=== PATIENT | female | born 1935 | race Caucasian/White ===

== ENCOUNTER 2019-07-27 05:55 | Day surgery (SDC) | payer MEDICARE, OTHER ==
[2019-07-27] VITALS (11 sets, daily range): BP systolic 134–163; BP diastolic 74–84
[~2019-07-27] VITALS: Ht 153 cm; Wt 65.8 kg
[~2019-07-27 05:55] MED LIST: ACTOPLUS MET 11 EACH ORAL; ACTOS15 MG ORAL; ACYCLOVIR200 MG/51 ORAL; AGGRENOX1 CAP ORAL; ARTIFICIAL TEA3.5 GM OP; BACLOFEN10 MG ORAL; CARVEDILOL25 MG ORAL; CELEBREX200 MG ORAL; CLONAZEPAM0.5 MG PO; CREON DR 24,001 EACH PO; CRESTOR20 MG ORAL; DIPHENHIST25 MG ORAL; EXFORGE 10-1601 EACH ORAL; FENOFIBRIC ACI105 MG PO; GENTEAL GEL DRO25 ML OP; IBANDRONATE SO150 MG PO; IBUPROFEN200 MG ORAL; JANUMET 50-1,01 EACH ORAL; LIDODERM700 M1 TOPIC; MAGNESIUM OXID500 M1 PO; METFORMIN HCL500 M1 ORAL; MONTELUKAST SODI5 MG ORAL; NEVANAC *; NEXIUM40 MG ORAL; PATADAY2.5 ML OP; PRISTIQ50 MG PO; PROAIR HFA8.5 GM INH; QNASL8.7 GM NS; RESTASIS1 EACH BOTH EYES; TRAVEL SICKNESS25 MG ORAL; VALSARTAN-HCTZ1 EAC1 ORAL; VASCEPA1 GM PO; VERAPAMIL HCL40 M1 PO; VITAMIN D32000 UNI2 PO
[2019-07-27] MEDS ORDERED: ASPIR 8181 MG ORAL (06:40)
[2019-07-27] MEDS ORDERED: Dexamethasone 4mg/ml vial ONE (07:15)
[2019-07-27] MEDS ORDERED: Lidocaine 1% Plain 30 ml INJ ONE (07:15)
[2019-07-27] MEDS ORDERED: Bupivacaine 0.5% Inj 30 ml vial INJ ONE (07:15)
--- NOTE | 2019-07-27 08:12 | Anethesia Preoperative Eval ---
Anesthesia Pre-op PMH/ROS General Date of Evaluation: Jul 27, 2019 Time of Evaluation: 08:43 Anesthesiologist: Pop ASA Score: ASA 3 Mallampati Score Class I : Soft palate, uvula, fauces, pillars visible Class II: Soft palate, uvula, fauces visible Class III: Soft palate, base of uvula visible Class IV: Only hard plate visible Mallampati Classification: Class II Surgeon: Renita Diagnosis: Hammertoe Right 3rd and 4th Digits Surgical Procedure: Hammertoe Correction Right 3rd and 4th Digits Anesthesia History: none Family History: no anesthesia problems Allergies: Uncoded Allergies: IV Contrast (Allergy, Intermediate, general swelling, 07/26/19) Medications: see eMAR Patient NPO?: Yes Past Medical History Cardiovascular: Reports: HTN, CAD, NE, arrhythmia - Pacemaker, other - PVD, HL Pulmonary: Reports: asthma Gastrointestinal/Genitourinary: Reports: GERD Neurologic/Psychiatric: Reports: CVA, depression/anxiety Endocrine: Reports: DM Hematology/Immune: Reports: other - Ovarian, Uterine CA Musculoskeletal/Integumentary: Reports: OA, other - Osteoporosis Other: obesity - BMI 34 PSxH Narrative: Vacular SX Anesthesia Pre-op Phys. Exam Physician Exam Last Vital Signs Date Time Temp Pulse Resp B/P (MAP) Pulse Ox O2 Delivery O2 Flow Rate FiO2 07/27/19 06:30 Room Air 07/27/19 06:22 97.7 69 18 151/76 97 Constitutional: NAD Neurologic: CN 2-12 intact Cardiovascular: RRR Respiratory: CTA Gastrointestinal: S/NT/ND Airway Exam Mallampati Score: Class II MO: limited ROM: limited Teeth: missing, intact Anesthesia Pre-op A/P Risk Assessment & Plan Assessment: ASA 3 Plan: TIVA, SED Status Change Before Surgery: No Pre-Antibiotics Dru Gram Ancef IV Given Within 1 Hr of Incision: Yes Time Given: 08:51 Efrain Lord MD Jul 27, 2019 08:12
[2019-07-27] MEDS ORDERED: LR 1000ml 1,000 ML IVLG SCH (08:13)
--- NOTE | 2019-07-27 08:13 | 48 Hour Post Anesthesia Eval ---
Post Anesthesia Evaluation Procedure: Marjan Right 3rd and 4th Digits Date of Evaluation: Jul 27, 2019 Time of Evaluation: 11:56 Blood Pressure Systolic: 158 0: 74 Pulse Rate: 69 Respiratory Rate: 18 Temperature (Fahrenheit): 98.1 O2 Sat by Pulse Oximetry: 97 Airway: patent Nausea: No Vomiting: No Pain Intensity: 1 Hydration Status: adequate Cardiopulmonary Status: Stable Mental Status/LOC: patient returned to baseline Follow-up Care/Observations: 0 Post-Anesthesia Complications: 0 Follow-up care needed: ready to discharge Efrain Lord MD Jul 27, 2019 08:13
--- NOTE | 2019-07-27 08:13 | Immediate Post-Op Evaluation ---
Immediate Post-Op Evalulation Immediate Post-Op Evalulation Procedure: Hannahertoe Right 3rd and 4th Digits Date of Evaluation: Jul 27, 2019 Time of Evaluation: 09:52 IV Fluids: 300 LR Blood Products: 0 Estimated Blood Loss: 6 Urinary Output: 0 Blood Pressure Systolic: 152 Blood Pressure Diastolic: 74 Pulse Rate: 75 Respiratory Rate: 16 O2 Sat by Pulse Oximetry: 100 Temperature (Fahrenheit): 98.5 Pain Score (1-10): 1 Nausea: No Vomiting: No Complications 0 Patient Status: awake, reacts, patent, none Hydration Status: adequate Dru Gram Ancef IV Given Within 1 Hr of Incision: Yes Time Given: 08:51 Efrain Lord MD Jul 27, 2019 08:13
[2019-07-27] MEDS ORDERED: Flumazenil 0.1mg/ml 5ml Inj IV ONE ×2 (08:14→09:27)
[2019-07-27] MEDS ORDERED: LORazepam Inj 2mg/ml 1ml IV PRN (08:15)
[2019-07-27] MEDS ORDERED: HYDROcodone/Acetamin 5/325 tab ORAL PRN (08:15)
[2019-07-27] MEDS ORDERED: Atropine Sulfate 0.4mg/ml inj IVP PRN (08:15)
[2019-07-27] MEDS ORDERED: Hydromorphone 0.5mg/0.5ml inj IVP PRN (08:15)
[2019-07-27] MEDS ORDERED: DiphenhydrAMINE 50mg/ml Inj IVP PRN (08:15)
[2019-07-27] MEDS ORDERED: Meperidine 25mg/0.5ml Inj (FOR RIGORS ONLY) IV PRN (08:15)
[2019-07-27] MEDS ORDERED: oxyCODONE HCL/Acetaminophen 5/325mg ORAL PRN (08:15)
[2019-07-27] MEDS ORDERED: Ketorolac 30mg Inj IV PRN ×2 (08:15)
[2019-07-27] MEDS ORDERED: Midazolam 2mg/2ml Inj IVP PRN (08:15)
[2019-07-27] MEDS ORDERED: HYDROcodone/Acetamin 7.5/325 tab ORAL PRN (08:15)
[2019-07-27] MEDS ORDERED: Labetalol 5mg/ml 20ml vial IV PRN (08:15)
[2019-07-27] MEDS ORDERED: Metoclopramide 10mg/2ml Inj IVP PRN (08:15)
[2019-07-27] MEDS ORDERED: fentaNYL 100 mcg/2 mL IV PRN (08:15)
--- NOTE | 2019-07-27 08:26 | Pre-Procedure Note/Attestation ---
Pre-Procedure Note/Attestation Complete Prior to Procedure Planned Procedure: right Procedure Narrative: Hammertoe correction third and fourth right digits Indications for Procedure Pre-Operative Diagnosis: Hammertoe deformity third and fourth right digits Attestation I attest that I discussed the nature of the procedure; its benefits; risks and complications; and alternatives (and the risks and benefits of such alternatives ), prior to the procedure, with the patient (or the patient's legal insurance healthcare representative). I attest that, if there was a reasonable possibility of needing a blood transfusion, the patient (or the patient's legal insurance healthcare representative) was given the [facility] standardized written summary, pursuant to the [employer] Blood Safety Act ([place] Health and Safety Code # 1645, as amended). I attest that I re-evaluated the patient just prior to the surgery and that there has been no change in the patient's H&P, except as documented below: Angel Maravilla DPM Jul 27, 2019 08:26
[2019-07-27] MEDS ORDERED: Lidocaine 1% MPF 10mg/ml 5ml ONE (08:36)
[2019-07-27] MEDS ORDERED: Sodium Chloride 10ml vial INJ ONE (08:44)
[2019-07-27] MEDS ORDERED: NS Irrig 1000ml ONE (09:00)
[2019-07-27] MEDS ORDERED: Propofol 200mg/20ml IV ONE (09:00)
[2019-07-27] MEDS ORDERED: Sterile Water Irrig 1000ml IRRIG ONE (09:00)
[2019-07-27] MEDS ORDERED: LR 1000ml ONE (09:00)
--- NOTE | 2019-07-27 09:29 | Brief Operative Note ---
Immediate Post Operative Note Operative Note Pre-op Diagnosis: Hammertoe deformity third and fourth right digits Procedure: Arthroplasty third and fourth right PIPJ Post-op Diagnosis: same as pre-op Findings: consistent w/pre-op dx studies Surgeon: Renita Anesthesiologist: Chas Anesthesia: MAC Specimen: yes Complications: none Condition: stable Fluids: 500 Estimated Blood Loss: none Drains: none Implant(s) used?: No Angel Maravilla DPM Jul 27, 2019 09:29
--- NOTE | 2019-07-27 16:29 | Diagnostic Imaging Report ---
Indication: Postoperative, status post surgery for foot pain Technique: 3 views right foot Comparison: none Findings: Patient is status post osteotomy of the heads of the third and fourth proximal phalanges. There is some degenerative irregularity of the head of the second proximal phalanx. There is old healed fracture deformity of the first metatarsal. There are mild degenerative changes of the first metatarsal phalangeal joint. No acute fractures. No dislocations. There are vascular calcifications Impression: Post surgical changes, as described. No unusual features
--- NOTE | 2019-07-27 16:45 | Operative Note - Dictated ---
DATE OF OPERATION: 07/27/2019 SURGEON: Angel Maravilla D.P.M. ANESTHESIOLOGIST: Efrain Lord M.D. PREOPERATIVE DIAGNOSIS: Painful hammertoe deformities, third and fourth right digits. POSTOPERATIVE DIAGNOSIS: Painful hammertoe deformities, third and fourth right digits. PROCEDURE PERFORMED: 1. Arthroplasty, fourth right proximal interphalangeal joint. 2. Arthroplasty, third right proximal interphalangeal joint. DESCRIPTION OF THE OPERATION: The patient was brought to the operating room and was placed on the operating room table in supine position. IV sedation was administered by the anesthesiologist. Local anesthesia consisting of 50:50 mix of 1% Xylocaine plain and 0.5% Marcaine plain. A total of 10 mL was administered to the third and fourth right digits. An ankle tourniquet was applied to the right lower extremity. The foot was prepped and draped in the usual sterile manner. An Esmarch bandage was then utilized to exsanguinate the blood and the right ankle tourniquet was inflated to 250 mmHg. Attention was directed to the fourth right digit where an approximately 4 cm dorsal linear skin incision was centered over the proximal interphalangeal joint. The incision was deepened utilizing sharp and blunt dissection with care being taken to cauterize and ligate all bleeders. At the level of the joint, a transverse tenotomy was performed. The extensor tendon was reflected proximally and the head of the proximal phalanx was exposed. The collateral ligaments were severed and at this point, a sagittal saw was utilized to resect the head of the proximal phalanx. The remaining bone was rasped smooth. The wound was copiously flushed utilizing sterile saline. At this point, the extensor tendon was reapproximated utilizing 4-0 Vicryl in a simple interrupted type stitch. The skin was then reapproximated utilizing 4-0 nylon in a simple interrupted type stitch. Attention was then directed to the third right digit. The exact identical procedure was performed to the third right digit as was carried all on the fourth right digit. The wound was dressed utilizing an Adaptic and 4 x 4 gauze and 3 inch Eun. The right ankle tourniquet was deflated and vascular supply was noted to all digits of right foot. The patient tolerated the procedure well and left the operating room to recovery room with all vital signs stable. Angel Maravilla D.P.M. DR: ISAÍAS JOB#: [id number] CC:
--- NOTE | 2019-07-27 17:00 | History and Physical Report ---
DATE OF ADMISSION: 07/27/2019 PODIATRIC HISTORY AND PHYSICAL HISTORY OF PRESENT ILLNESS: This is an 84-year-old white female who was admitted today for an outpatient correction of her painful toes third and fourth right digit. The patient has been under my care for the past several months and she was treated in the office conservatively for painful hammertoe deformities of her right lesser digits. The conservative care which consisted of shoe-gear modification, padding failed to alleviate the pain relief and the patient was consulted on surgical correction. PAST MEDICAL HISTORY: Remarkable for asthma, hyperlipidemia, seizures, osteoporosis, diabetes mellitus, and heart disease. MEDICATIONS: Ventolin, Restasis, verapamil, Vascepa, Pristiq, Nexium, meclizine, Fenofibrate micronized, Exforge, Creon, clonazepam, carvedilol, Aggrenox. ALLERGIES: The patient is allergic to IV contrast. PODIATRIC PHYSICAL EXAMINATION: VASCULAR: The dorsalis pedis and posterior tibial arteries are equally palpable measuring 1/4 bilaterally. Capillary filling time is less than 5 seconds to all digits bilaterally. The skin is warm to touch. No erythema or edema bilateral lower extremities noted. Homans sign is negative. NEUROLOGICAL: Reflexes, patellar andAchilles measuring 1/4 bilaterally. Sensation, proprioception, and vibration are all intact bilateral lower extremity. Babinski is negative. Clonus is absent bilateral lower extremity. MUSCULOSKELETAL: Examination reveals bilateral nonreducible hammertoe deformities of digits 2 through 5 with worse deformity noted over the third and fourth right digits. Mild bunions are also noted bilaterally. Range of motion of the ankle, subtalar joint, and midtarsal joint is reduced bilaterally. No crepitation is noted. No other structural deformities are noted. DERMATOLOGICAL: Intact skin without any ulcerations or lesions bilaterally. All nails are present and dystrophic bilaterally. ASSESSMENT: Hammertoe deformities, right foot. PLAN: The patient was admitted today for hammertoe correction of her third and fourth right digits. Risks, complications, and alternatives were discussed again with the patient. Postoperative instructions were given to the patient. Postoperative pain medications were dispensed to the patient. The patient elected to proceed with surgery. Angel Maravilla D.P.M. DR: Tommy JOB#: [id number] CC: ZURDO
== END 2019-07-27 14:10 | disposition home or self-care (01) ==
LOC: SUR 05:55
DX: M20.41 Other hammer toe(s) (acquired), right foot (principal); E78.5 Hyperlipidemia, unspecified; G40.909 Epilepsy, unspecified, not intractable, without status epilepticus; E11.9 Type 2 diabetes mellitus without complications; Z79.899 Other long term (current) drug therapy; I11.9 Hypertensive heart disease without heart failure; I25.10 Atherosclerotic heart disease of native coronary artery without angina pectoris; I25.2 Old myocardial infarction; Z95.0 Presence of cardiac pacemaker; K21.9 Gastro-esophageal reflux disease without esophagitis; F32.9 Major depressive disorder, single episode, unspecified; F41.9 Anxiety disorder, unspecified; M81.0 Age-related osteoporosis without current pathological fracture; Z85.43 Personal history of malignant neoplasm of ovary; Z85.42 Personal history of malignant neoplasm of other parts of uterus; E66.9 Obesity, unspecified; Z68.28 Body mass index [BMI] 28.0-28.9, adult
CPT/HCPCS: 28285; 73630; 82962; J0690; J1100; J2001; J2405; J2704; J3490; J7120; 94003; 94150